=== PATIENT | female | born 1980 | race Caucasian/White ===

== ENCOUNTER 2024-01-21 20:35 | Emergency (ER) | payer OTHER ==
--- NOTE | 2024-01-21 21:49 | ED ---
General Adult HPI - General Chief complaint: Nausea/Vomiting/Diarrhea Stated complaint: NVD Time Seen by Provider: 01/21/24 21:11 Source: patient Mode of arrival: ambulatory Limitations: no limitations - History of Present Illness Initial comments: Patient is a 43-year-old female past medical history of cholecystectomy, hysterectomy, GERD, hypertension presenting today for nausea vomiting and diarrhea. Patient states that last night she went to a constitution party with her boyfriend where she drink a few alcoholic beverages and had lemonade that she felt like t asted too sweet that her boyfriend had made. Then earlier this afternoon the patient was at a cookout where she started to feel sick so she did not eat anything. She then had 4 episodes of nonbloody nonbilious emesis and dry heaves. Also began to notice lower abdominal pain with a sensation that she has to have a bowel movement" went to the bathroom and had 2 episodes of watery stool with streaks of blood. Patient denies any lightheadedness or dizziness, is not on blood thinners, denies chest pain or shortness breath, no recent sore throat, congestion or cough, no vaginal discharge or vaginal bleeding, - Related Data Allergies Allergy/AdvReac Type Severity Reaction Status Date / Time codeine Allergy Rash/Hives Verified 01/21/24 20:52 morphine Allergy Rash/Hives Verified 01/21/24 20:52 Penicillins Allergy Anaphylaxis Verified 01/21/24 20:52 tramadol Allergy Anaphylaxis Verified 01/21/24 20:52 Review of Systems ROS Statement: Those systems with pertinent positive or pertinent negative responses have been documented in the HPI. ROS Other: All systems not noted in ROS Statement are negative. Constitutional: Reports: chills. Denies: fever, weakness ENT: Denies: throat pain, congestion Respiratory: Denies: cough, dyspnea Cardiovascular: Denies: chest pain Gastrointestinal: Reports: abdominal pain, nausea, vomiting, diarrhea, con stipation, hematochezia. Denies: hematemesis, melena Genitourinary: Reports: urgency. Denies: dysuria, frequency, hematuria, discharge Musculoskeletal: Reports: back pain Neurological: Denies: weakness, vertigo Past Medical History Past Medical History: GERD/Reflux, Hypertension History of Any Multi-Drug Resistant Organisms: None Reported Past Surgical History: Section, Cholecystectomy, Hysterectomy, Orthopedic Surgery, Tonsillectomy Past Psychological History: Anxiety, Depression Smoking Status: Current every day smoker Past Alcohol Use History: Occasional Past Drug Use History: Marijuana General Exam - General Exam Comments Initial Comments: PE: CONSTITUTIONAL: No apparent distress, well appearing SKIN: Warm, dry, no jaundice, hives or petechiae EYES: Pupils are equally round, extraocular movements intact without nystagmus, clear conjunctiva, non-icteric sclera HENT: Normocephalic, atraumatic, dry t mucus membranes, oropharynx clear without exudates NECK: , Full range of motion, normal appearance PULMONARY: Clear to auscultation without wheezes, rhonchi, or rales, normal excursion, no accessory muscle use and no stridor CARDIOVASCULAR: Tachycardia, regular, rhythm, normal S1 and S2. No appreciated murmurs, rubs or gallops. Strong radial pulses with intact distal perfusion. No lower extremity edema GASTROINTESTINAL: Soft, nondistended, no palpable masses, no rebound, no hepatosplenomegaly, tenderness palpation of the epigastric, suprapubic region and left lower quadrant, no right lower quadrant tenderness or positive McBurney's point, no CVA tenderness, active bowel sounds throughout MUSCULOSKELETAL: Extremities have no gross deformity, no edema, redness, or swelling. No calf swelling ot TTP. NEUROLOGIC:_a/o x 3, GCS 15, normal mentation and speech. Moves all extremities x 4 without motor or sensory deficit PSYCHIATRIC:_normal mood and affect, thought process is clear and linear Limitations: no limitations Course Vital Signs 01/21/24 01/21/24 01/22/24 20:49 22:19 00:03 Temperature 98.3 F Pulse Rate 120 H 94 84 Respiratory 20 18 18 Rate Blood Pressure 114/68 112/69 98/64 O2 Sat by Pulse 100 99 99 Oximetry 01/22/24 01/22/24 01:00 02:10 Temperature 98.4 F Pulse Rate 100 78 Respiratory 18 18 Rate Blood Pressure 109/77 118/74 O2 Sat by Pulse 100 100 Oximetry Medical Decision Making - Medical Decision Making Was pt. sent in by a medical professional or institution (, PA, JUNCTION [employer]ER, urgent care, hospital, or long-term...) When possible be specific @ -No Did you speak to anyone other than the patient for history (EMS, parent, family, police, friend...)? What history was obtained from this source @ -No Did you review nursing and triage notes (agree or disagree)? Why? @ -I reviewed and agree with nursing and triage notes Were old charts reviewed (outside hosp., previous admission, EMS record, old EKG, old radiological studies, urgent care reports/EKG's, long-term records)? Report findings @ -No old charts available for review Differential Diagnosis (chest pain, altered mental status, abdominal pain women, abdominal pain men, vaginal bleeding, weakness, fever, dyspnea, syncope, headache, dizziness, GI bleed, back pain, seizure, CVA, palpatations, mental health, musculoskeletal)? @Differential Abdominal Pain Women: Differential diagnosis remains broad however top considerations include appendicitis, diverticulitis, ischemic bowel, partial SBO, pancreatitis, UTI, gastroenteritis, ureterolithiasis, bowel obstruction this is not all-inclusive list EKG interpreted by me (3pts min.). @ -As above X-rays interpreted by me (1pt min.). @ -None done CT interpreted by me (1pt min.). @ -No evidence of obstruction or perforation U/S interpreted by me (1pt. min.). @ -None done What testing was considered but not performed or refused? (CT, X-rays, U/S, labs)? Why? @ -None What meds were considered but not given or refused? Why? @ -None Did you discuss the management of the patient with other professionals (professionals i.e. , PA, JUNCTION [employer]ER, lab, RT, psych nurse, social services aide, operator electronic warfare, teacher, chief diversity officer, high risk case manager)? Give summary @ -No Was smoking cessation discussed for >3mins.? @ -No Was critical care preformed (if so, how long)? @ -No Were there social determinants of health that impacted care today? How? (Homel essness, low income, unemployed, alcoholism, drug addiction, transportation, low edu. Level, literacy, decrease access to med. care, [facility], rehab)? @ -No Was there de-escalation of care discussed even if they declined (Discuss DNR or withdrawal of care, Hospice)? @ -No What co-morbidities impacted this encounter? (DM, HTN, Smoking, COPD, CAD, Cancer, CVA, ARF, Chemo, Hep., AIDS, mental health diagnosis, sleep apnea, morbid obesity)? @ -None Was patient admitted / discharged? Hospital course, mention meds given and route, prescriptions, significant lab abnormalities, [facility]. @ Discharged -Pleasant 43-year-old female presenting today for nausea, vomiting, diarrhea x 1 day. Associated lower abdominal and low back pain. Pain worse in the lower abdomen. On my assessment patient is well-appearing, pleasant conversant. Dry mucous membranes, lungs clear to auscultation bilaterally, normal S1-S2, mild tachycardia, extremities well-perfused, epigastric, suprapub ic and left lower quadrant to palpation, negative McBurney's point, nondistended. Discussed with patient plan of care for morphine, Zofran, Tylenol, CT abdomen pelvis, urinalysis, comprehensive labs and IV fluids. Patient agreeable with plan of care. CBC reviewed, shows mild leukocytosis, white blood cell count 14.1. On reassessment patient remained painful. Ordered additional morphine. Labs otherwise significant for mild hyponatremia 134, creatinine 1.13 however no available for prior, GFR 59. Urinalysis showed no significant findings. CT Abdo pelvis showed suspected uncomplicated distal colitis differential including infectious, inflammatory and ischemic. I updated patient to these findings. Patient herself has no history of inflammatory bowel disease. She has a history of atrial fibrillation. Will obtain a lactic to further rule out concern for ischemic changes. Highly suspect infectious colitis. Lactic 1.2. Low suspicion that colitis ischemic in origin. On reassessment patient's pain has improved. I discussed with her findings suspicious for infectious colitis. We discussed the importance of supportive care, clear liquid diet and return precautions. Patient agreeable and comfortable discharge at this point. In my medical judgment there is currently no evidence of an immediate life- threatening or surgical condition. Discharge is therefore indicated at this time. Discharge treatment instructions, follow up instructions, and appropriate emergency department return precautions were discussed with the patient and/or medical decision maker. Patient and/or medical decision maker expressed understanding of and agreed with the treatment plan, follow up instructions, and emergency department return precaution. All patient's and/or medical decision maker's questions were answered. Undiagnosed new problem with uncertain prognosis? @ -No Drug Therapy requiring intensive monitoring for toxicity (Heparin, Nitro, Insulin, Cardizem)? @ -No Were any procedures done? @ -No Diagnosis/symptom? @ -Colitis Acute, or Chronic, or Acute on Chronic? @ -Acute Uncomplicated (without systemic symptoms) or Complicated (systemic symptoms)? @ -Complicated Side effects of treatment? @ -No Exacerbation, Progression, or Severe Exacerbation? @ -No Poses a threat to life or bodily function? How? (Chest pain, [place], [place], pneumonia, PE, COPD, DKA, ARF, appy, cholecystitis, CVA, Diverticulitis, Homicidal, Suicidal, threat to staff... and all critical care pts) @ -Unlikely] - Lab Data Result diagrams: 01/21/24 22:03 01/21/24 22:03 Lab Results 01/21/24 01/21/24 01/21/24 Range/Units 22:03 22:03 23:12 WBC 14.1 H (3.8-10.6) k/uL RBC 4.50 (3.80-5.40) m/uL Hgb 12.2 (11.4-16.0) gm/dL Hct 36.7 (34.0-46.0) % MCV 81.5 (80.0-100.0) fL MCH 27.2 (25.0-35.0) pg MCHC 33.3 (31.0-37.0) g/dL RDW 16.1 H (11.5-15.5) % Plt Count 359 (150-450) k/uL MPV 8.1 Neutrophils % 73 % Lymphocytes % 19 % Monocytes % 5 % Eosinophils % 2 % Basophils % 0 % Neutrophils # 10.3 H (1.3-7.7) k/uL Lymphocytes # 2.7 (1.0-4.8) k/uL Monocytes # 0.6 (0-1.0) k/uL Eosinophils # 0.2 (0-0.7) k/uL Basophils # 0.0 (0-0.2) k/uL Anisocytosis Slight Sodium 134 L (137-145) mmol/L Potassium 3.7 (3.5-5.1) mmol/L Chloride 113 H (98-107) mmol/L Carbon Dioxide 18 L (22-30) mmol/L Anion Gap 3 mmol/L BUN 9 (7-17) mg/dL Creatinine 1.13 H (0.52-1.04) mg/dL Est GFR (CKD-EPI)AfAm 69 (>60 ml/min/1.73 sqM) Est GFR (CKD-EPI)NonAf 59 (>60 ml/min/1.73 sqM) Glucose 103 H (74-99) mg/dL Plasma Lactic Acid Buster (0.7-2.0) mmol/L Calcium 9.3 (8.4-10.2) mg/dL Total Bilirubin 0.7 (0.2-1.3) mg/dL AST 24 (14-36) U/L ALT 16 (4-34) U/L Alkaline Phosphatase 81 (38-126) U/L Total Protein 6.4 (6.3-8.2) g/dL Albumin 4.0 (3.5-5.0) g/dL Amylase 60 (30-110) U/L Lipase 64 (23-300) U/L Urine Color Colorless Urine Appearance Clear (Clear) Urine pH 6.5 (5.0-8.0) Ur Specific E[place] 1.011 (1.001-1.035) Urine Protein Negative (Negative) Urine Glucose (UA) Negative (Negative) Urine Ketones Negative (Negative) Urine Blood Negative (Negative) Urine Nitrite Negative (Negative) Urine Bilirubin Negative (Negative) Urine Urobilinogen <2.0 (<2.0) mg/dL Ur Leukocyte Esterase Negative (Negative) 01/21/24 Range/Units 23:56 WBC (3.8-10.6) k/uL RBC (3.80-5.40) m/uL Hgb (11.4-16.0) gm/dL Hct (34.0-46.0) % MCV (80.0-100.0) fL MCH (25.0-35.0) pg MCHC (31.0-37.0) g/dL RDW (11.5-15.5) % Plt Count (150-450) k/uL MPV Neutrophils % % Lymphocytes % % Monocytes % % Eosinophils % % Basophils % % Neutrophils # (1.3-7.7) k/uL Lymphocytes # (1.0-4.8) k/uL Monocytes # (0-1.0) k/uL Eosinophils # (0-0.7) k/uL Basophils # (0-0.2) k/uL Anisocytosis Sodium (137-145) mmol/L Potassium (3.5-5.1) mmol/L Chloride (98-107) mmol/L Carbon Dioxide (22-30) mmol/L Anion Gap mmol/L BUN (7-17) mg/dL Creatinine (0.52-1.04) mg/dL Est GFR (CKD-EPI)AfAm (>60 ml/min/1.73 sqM) Est GFR (CKD-EPI)NonAf (>60 ml/min/1.73 sqM) Glucose (74-99) mg/dL Plasma Lactic Acid Buster 1.2 (0.7-2.0) mmol/L Calcium (8.4-10.2) mg/dL Total Bilirubin (0.2-1.3) mg/dL AST (14-36) U/L ALT (4-34) U/L Alkaline Phosphatase (38-126) U/L Total Protein (6.3-8.2) g/dL Albumin (3.5-5.0) g/dL Amylase (30-110) U/L Lipase (23-300) U/L Urine Color Urine Appearance (Clear) Urine pH (5.0-8.0) Ur Specific [place] (1.001-1.035) Urine Protein (Negative) Urine Glucose (UA) (Negative) Urine Ketones (Negative) Urine Blood (Negative) Urine Nitrite (Negative) Urine Bilirubin (Negative) Urine Urobilinogen (<2.0) mg/dL Ur Leukocyte Esterase (Negative) Disposition Clinical Impression: Colitis Disposition: HOME SELF-CARE Condition: Good Instructions (If sedation given, give patient instructions): Acute Diarrhea (ED) Additional Instructions: Every disease is a spectrum and a small chance still exists that a serious condi tion could develop, for this reason, please monitor yourself closely for new, changing or worsening symptoms, symptoms that persist beyond an additional 72 hours, further bloody stools, return of severe abdominal pain, fever, inability to tolerate/keep down fluids or your medications, inability to follow up with outpatient providers as instructed and should you experience these symptoms or should you have any further concerns for your wellbeing please return to the ED or call 911 immediately. Please drink plenty of clear fluids and maintain a clear liquid diet for the next 24 hours. PLEASE call your primary care physician as soon as possible to arrange / discuss plan for followup appointment. Appointment in the next 1-3 days is strongly encouraged if possible. PLEASE let us know here before you leave if there is anything further we can do to be of any assistance. Take care and feel Better! Is patient prescribed a controlled substance at d/c from ED?: No Referrals: None,Stated [Primary Care Provider] - 1-2 days
[2024-01-21] MEDS: SODIUM CHLORIDE 0.9% 1,000 ML IV STA (22:15)
[2024-01-21] MEDS: ONDANSETRON 4 MG/2 ML VIAL IVP STA (22:16)
[2024-01-21 22:18] LABS: Anisocytosis Slight; Basophils % (A) 0 %; Eosinophils # (A) 0.2 k/uL (0-0.7); Eosinophils % (A) 2 %; HCT 36.7 % (34.0-46.0); HGB 12.2 gm/dL (11.4-16.0); Lymphocytes # (A) 2.7 k/uL (1.0-4.8); Lymphocytes % (A) 19 %; MCH 27.2 pg (25.0-35.0); MCHC 33.3 g/dL (31.0-37.0); MCV 81.5 fL (80.0-100.0); Mean Platelet Volume 8.1; Monocytes # (A) 0.6 k/uL (0-1.0); Monocytes % (A) 5 %; Neutrophils # (A) 10.3 k/uL (1.3-7.7); Neutrophils % (A) 73 %; Platelet Count 359 k/uL (150-450); RDW 16.1 % (11.5-15.5); WBC 14.1 k/uL (3.8-10.6)
[2024-01-21] MEDS: diphenhydrAMINE 50 MG/ML 1 ML VIAL IVP STA (22:18)
[2024-01-21] MEDS: MORPHINE SULFATE 4 MG/ML SYRINGE IVP STA (22:20)
[2024-01-21] MEDS: ACETAMINOPHEN TAB 500 MG TAB PO STA (23:08)
[2024-01-21 23:19] LABS: ALT 16 U/L (4-34); AST 24 U/L (14-36); African American GFR (CKD) 69 (>60 ml/min/1.73 sqM); Alkaline Phosphatase 81 U/L (38-126); Amylase 60 U/L (30-110); Anion Gap 3 mmol/L; Blood Urea Nitrogen 9 mg/dL (7-17); Calcium 9.3 mg/dL (8.4-10.2); Carbon Dioxide 18 mmol/L (22-30); Chloride 113 mmol/L (98-107); Glucose 103 mg/dL (74-99); Lipase 64 U/L (23-300); Non-African American GFR(CKD) 59 (>60 ml/min/1.73 sqM); Potassium 3.7 mmol/L (3.5-5.1); Sodium 134 mmol/L (137-145); Total Bilirubin 0.7 mg/dL (0.2-1.3); Total Protein 6.4 g/dL (6.3-8.2)
[2024-01-21 23:25] VITALS: RESP 18
[2024-01-21 23:33] LABS: Appearance,Urine Clear (Clear); Bilirubin,Urine Negative (Negative); Blood,Urine Negative (Negative); Color,Urine Colorless; Glucose,Urine (UA) Negative (Negative); Ketones,Urine Negative (Negative); Leukocyte Esterase,Urine Negative (Negative); Nitrite,Urine Negative (Negative); PH, Urine 6.5 (5.0-8.0); Protein,Urine Negative (Negative); Specific Gravity,Urine 1.011 (1.001-1.035); Urobilinogen,Urine <2.0 mg/dL (<2.0)
--- NOTE | 2024-01-21 23:41 | CT ---
EXAMINATION TYPE: CT abdomen pelvis w con DATE OF EXAM: 01/21/2024 HISTORY: N/V, diarrhea with small blood, low back pain CT DLP: 1008.5mGycm Automated Exposure Control for Dose Reduction was Utilized. CONTRAST: CT scan of the abdomen and pelvis is performed with IV Contrast, patient injected with 100 mL of Isov ue 300. COMPARISON: None. FINDINGS: LUNG BASES: No significant abnormality is appreciated. LIVER/GB: Cholecystectomy clips are seen. PANCREAS: No significant abnormality is seen. SPLEEN: No significant abnormality is seen. ADRENALS: No significant abnormality is seen. KIDNEYS: No significant abnormality is seen. BOWEL: No abnormal small or large bowel dilatation. Moderate concentric wall thickening involving th e left and sigmoid colon. Appendix within normal limits from the cecum. UTERUS/ADNEXA: Uterus is surgically absent. LYMPH NODES: No greater than 1cm abdominal or pelvic lymph nodes are appreciated. OSSEOUS STRUCTURES: No significant abnormality is seen. OTHER: No significant additional abnormality is seen. IMPRESSION: Suspect an uncomplicated distal colitis. Differential includes infectious, inflammatory, and ischemic etiologies. Correlate clinically. [facility], , 01/21/2024 11:39 PM
[2024-01-22] MEDS: MORPHINE SULFATE 4 MG/ML SYRINGE IVP STA (00:06)
[2024-01-22] MEDS: ONDANSETRON 4 MG/2 ML VIAL IVP STA (00:07)
[2024-01-22 02:33] VITALS: BP 118/74; PULSE 78; TEMP 98.4
== END 2024-01-22 02:10 | disposition home or self-care (01) ==
LOC: EC 20:35
DX: K52.9 Noninfective gastroenteritis and colitis, unspecified (principal); F17.200 Nicotine dependence, unspecified, uncomplicated; Z88.0 Allergy status to penicillin; Z88.5 Allergy status to narcotic agent; Z90.49 Acquired absence of other specified parts of digestive tract
CPT/HCPCS: 99284 ×2; 36415; 80053; 82150; 83605; 83690; 85025; 81003; 74177; 96374; 96375 ×2; 96376; 96361 ×2; J2270 ×2; J1200; J2405; Q9967